=== PATIENT | female | born 1980 | race Caucasian/White ===

== ENCOUNTER 2016-12-07 19:57 | Emergency (ER) | payer OTHER ==
[~2016-12-07] VITALS: Ht 170.2 cm; Wt 84.1 kg
[2016-12-07 20:06] VITALS: BP 127/94; PULSE 90; RESP 16; O2SAT 100
--- NOTE | 2016-12-07 20:06 | ED.REPORT ---
HPI-Neurologic Deficit Date of Service Dec 07, 2016 ED Provider: Adria Oglesby DO Pt is a 36 y.o. female who presents to the ED from c/o right-sided numbness, last known normal 1430. Pt states that she was getting into her car when she began to experience the numbness. She also reports associated tingling, dizziness, and a "foggy" feeling. She decided to rest for a while and upon getting up she felt right-sided weakness and soreness. Upon arrival to the ED pt states she still has minimal decreased sensation to her right side but is near her baseline. She denies having slurred speech, facial droop, and vision changes. She reports having a migraine last week. She denies estrogen or control use. She denies a hx of CVA, seizures, CAD, DM, or substance abuse. Nursing Notes Stated Complaint: R/SIDE NUMBNESS Chief Complaint: Neuro Symptoms/ Deficits Nursing Notes Reviewed: Yes General Time Seen by Provider: 20:06 Chief Complaint Numbness arm... (Right), Numbness leg... (Right) Hx Obtained From: Patient Arrived By: Walk-in Sudden in Onset?: Yes Onset Occurred: 5 - 8 hours ago Symptom Duration: Since onset Progression Since Onset: Gradually improving Severity: Current: No pain currently Associated with: Reports: Altered sensation Related History: Denies: CVA/TIA, Drug abuse, Seizure disorder Recent Healthcare: No recent doctor visit, No recent hospitalization Similar Sx Previous: No Past Medical History Past Medical History Denies Denies: Coronary artery disease, Diabetes mellitus Denies: Seizure disorder Past Surgical History Denies Smoking History Current Every Day Smoker Social History Alcohol Use: "Social" Drug Use: Denies drug use Other Social History: Good social support, Ambulatory Status Independent Review of Systems Neurologic: Reports: Dizziness, Numbness (Right sided), Weakness (Right sided) , Denies: Slurred speech, Vision change Complete sys rev & neg: except as marked. Physical Exam Initial Vital Signs Vital Signs (First) Date Time Temp Pulse Resp B/P Pulse Ox O2 Delivery O2 Flow Rate FiO2 12/07/16 20:06 36.7 90 16 127/94 100 Room Air Initial VS: Reviewed Abdomen / GI: No distention Extremities: Vascular intact, Neuro intact Skin: Warm, Dry, No cyanosis Psychiatric: Mood/affect normal, Behavior normal, Normal thought content General/Constitutional: Awake, Alert, No acute distress, Well appearing, Well developed, Well hydrated, Well nourished, Not toxic appearing Head / Eyes: Atraumatic, Normocephalic, PERRL Respiratory / Chest: Atraumatic, Breath sounds NL, Breath sounds = bilat, No respiratory distress, No rales, No rhonchi, No wheezing, No retractions, No stridor Cardiovascular: Heart rate NL, Regular rhythm, Heart sounds NL, No gallop, No murmurs, No rubs, Cap refill not delayed, Peripheral circulation NL Neurologic: Oriented X3, Speech NL, No motor deficits Interpretation & Diagnostics PROCEDURE: MRI BRAIN WITHOUT CONTRAST ([id number]) IMPRESSION: MR of the brain without contrast is considered normal. Cause of right arm, facial weakness is not identified. Dictated by: Rudy George M.D. on 12/07/2016 at 22:37 Approved by: Rudy George M.D. on 12/07/2016 at 22:39 Lab Results Interpretation Result Diagram: 12/07/16199912/07/161999 Test 12/07/16 20:00 12/07/16 20:32 White Blood Count 13.0th/mm3 (3.8-10.1) Red Blood Count 4.54mil/mm3 (3.90-5.20) Hemoglobin 15.1g/dL (12.0-15.6) Hematocrit 43.3% (35.0-46.0) Mean Corpuscular Volume 95.4fL (81-100) Mean Corpuscular Hemoglobin 33.3pg (27.0-35.0) Mean Corpuscular Hemoglobin Concent 34.9% (32.0-37.0) Red Cell Distribution Width 12.7% (12.3-15.4) Platelet Count 276bil/L (150-400) Neutrophils (%) (Auto) 70.7% (40-74) Lymphocytes (%) (Auto) 19.7% (14-46) Monocytes (%) (Auto) 6.9% (4-12) Eosinophils (%) (Auto) 2.3% (0-5) Basophils (%) (Auto) 0.2% (0-3) Prothrombin Time 9.4sec (8.1-12.5) Prothromb Time International Ratio 0.88ratio Sodium Level 138mEq/L (134-144) Potassium Level 3.4mEq/L (3.5-5.2) Chloride Level 97mEq/L (97-108) Carbon Dioxide Level 24mmol/L (18-29) Blood Urea Nitrogen 14mg/dL (6-20) Creatinine 0.51mg/dL (0.57-1.00) Estimat Glomerular Filtration Rate 198mL/min (>59) Glucose Level 86mg/dL (60-99) Calcium Level 9.9mg/dL (8.5-10.1) Total Bilirubin 0.2mg/dL (0.0-1.2) Aspartate Amino Transf (AST/SGOT) 26U/L (0-50) Alanine Aminotransferase (ALT/SGPT) 24U/L (0-32) Alkaline Phosphatase 73U/L (25-150) Total Protein 8.1g/dL (6.4-8.4) Albumin 4.7g/dL (3.4-5.0) Thyroid Stimulating Hormone (TSH) 3.050uIU/mL (0.450-4.500) HCG Beta Subunit < 0.500mIU/mL Hold Raymond Top Tube Received (Received) Urine Color Straw (YELLOW) Urine Appearance Clear (CLEAR,HAZY) Urine pH 6.0 (5.0-8.0) Urine Specific [place] <1.005 (1.003-1.035) Urine Protein Negativemg/dL (NEG,TRACE) Urine Glucose (UA) Negativemg/dL (NEGATIVE) Urine Ketones Negativemg/dL (NEGATIVE) Urine Occult Blood Large (NEGATIVE) Urine Nitrite Negative (NEGATIVE) Urine Bilirubin Negative (NEGATIVE) Urine Urobilinogen Normalmg/dL (NORMAL) Urine Leukocyte Esterase Negative (NEGATIVE) Urine RBC 11-50/hpf (0-2) Urine WBC 0-5/hpf (0-5) Urine Epithelial Cells Moderate/hpf (NONE-MOD) Urine Crystals None seen (NONE SEEN) Urine Bacteria Moderate/hpf (NONE-FEW) Urine Hyaline Casts None/lpf (NONE) Urine Granular Casts None seen (NONE SEEN) Urine Waxy Casts None seen (NONE SEEN) Urine Red Blood Cell Casts None seen (NONE SEEN) Urine White Blood Cell Casts None seen (NONE SEEN) Urine Mucus Present (None Seen) Urine Trichomonas None seen (NONE SEEN) Urine Yeast None (NONE SEEN) Urinalysis Comment None Urine Culture Reflexed Indicated Hold Urine Received (Received) Urine Opiates Screen Negative Urine Methadone Screen Negative Urine Barbiturates Screen Negative Urine Amphetamines Screen Negative Urine Benzodiazepines Screen Negative Urine Cocaine Metabolite Screen Negative Urine Cannabinoids Screen Negative ECG Interpretation Time: 20:32 Interpreted by: ED physician Normal ECG Interpretation: Normal ECG w/ rate of... (81), Normal rate, Normal sinus rhythm CBC Interpretation WBC elevated CT Head Interpretation IMPRESSION: No abnormalities found in the CT of the head without contrast. Because the right-sided face arm and leg numbness and weakness is not identified. Dictated by: Rudy George M.D. on 12/07/2016 at 20:45 Approved by: Rudy George M.D. on 12/07/2016 at 20:48 Re-Eval/Medical Decision Med Decision/Clinical Course Patient presented with rapid resolution of stroke type symptoms. Her NIH stroke score was 0. CT scan of her brain was normal. MRI of her brain with diffusion-weighted imaging was normal. Her laboratory work was unremarkable. I recommended observation for stroke workup. She preferred to not be admitted for this. She did agree to start aspirin therapy and to follow-up with neurology. Taking count her age I do not feel that carotid artery disease is going to be the issue. I do think that she may need an echo but I would defer to neurology consultation. Neurology referral given. Recommendations for aspirin given. She understood the risks. She is discharged in stable condition. Source of Hx: Old records Re-Evaluation/Progress #1: Time of Eval: 20:39 )( Re-Eval Neurologic Exam: Pt is back to baseline Re-Evaluation/Progress Note: Pt rechecked. NIH stroke score or 0, pt states she is feeling back to baseline. Re-Evaluation/Progress #2: Time of Eval: 21:38 Re-Evaluation/Progress Note: Pt would prefer to not be admitted for observation. Re-Evaluation/Progress #3: Time of Eval: 21:41 Re-Evaluation/Progress Note: Discussed plan for MRI then discharge, pt understands and agrees with plan. NIH Stroke Scale : Level of Consciousness: Alert and responsive (0) Ask Month & Age: Both questions right (0) Open/Close Eyes/Hand Communications And Signals Supervisor: Performs both tasks (0) Horizontal EO Movements: None (0) Visual Goss: No visual loss (0) Facial Palsy: Normal symmetry (0) Right Arm Motor Drift (10s): No drift 10 sec (0) Left Arm Motor Drift (10s): No drift 10 sec (0) Right Leg Motor Drift (5s): No drift 5 sec (0) Left Leg Motor Drift (5s): No drift 5 sec (0) Limb Ataxia FNF/Heel-Overton: No ataxia (0) Sensation (Arms/Legs/Face): No sensory loss (0) Language Aphasia: No aphasia, normal (0) Dysarthria: No dysarthria, normal (0) Extinction/Inattention: No exctinct/inattent (0) NIHSS Score: 0 Time NIHSS Performed: 20:39 Date NIHSS Performed: Dec 07, 2016 Counseled Regarding: Diagnosis, Lab results, Need for follow-up, Need for admission Discharge & Departure Impression: Primary Impression: Numbness on right side Discharge Condition All VS Reviewed: Yes Condition: Stable Additional Instructions: Take 2 baby aspirin a day until you follow-up appointment with neurology. Call neurology tomorrow for next available appointment for further work-up as this may have been a TIA. I recommend you never smoke. Keep a close eye on your blood pressure. Set up a follow-up your primary care as well. Do not hesitate to return if you have any more numbness or weakness or if you develop any slurred speech or any weakness or any other problems. Referrals: Keron Geiger PA-C (PCP) Preeti Chaudhry MD Attestation Portions of this note were transcribed by Alyssa Vazquez. I, Dr. Oglesby personally performed the history, physical exam and medical decision-making; I reviewed and confirmed the accuracy of the information in the transcribed note. Signed by : Shelly Mosley, 12/07/16 and 6800. copies to: Preeti Chaudhry MD; Keron Geiger PA-C, Todd P DO Dec 07, 2016 20:06 ALYSSA VAZQUEZ Dec 07, 2016 20:09
[2016-12-07 20:18] LABS: BASOPHILS % (AUTO) 0.2 % (0-3); EOSINOPHILS % (AUTO) 2.3 % (0-5); MONOCYTES % (AUTO) 6.9 % (4-12); Mean Corpuscular Hemoglobin 33.3 pg (27.0-35.0); Mean Corpuscular Volume 95.4 fL (81-100); NEUTROPHILS % (AUTO) 70.7 % (40-74); Platelet Count 276 bil/L (150-400)
[2016-12-07 20:31] VITALS: BP 130/84; PULSE 90; RESP 16; O2SAT 99
[2016-12-07 20:31] LABS: INR 0.88 ratio
[2016-12-07 20:49] LABS: APPEARANCE,URINE CLEAR (CLEAR,HAZY); COLOR,URINE STRAW (YELLOW); OCCULT BLOOD,URINE LARGE (NEGATIVE); UROBILINOGEN,URINE NORMAL (NORMAL)
--- NOTE | 2016-12-07 20:49 | DRSVH ---
PROCEDURE: CT BRAIN WITHOUT CONTRAST ([id number]) INDICATIONS: right facial, arm and leg weakness TECHNIQUE: Noncontrast 4.5 mm thick angled axial sections acquired from the foramen magnum to the vertex, with c oronal reformats. COMPARISON: None. FINDINGS: Image quality: Excellent. CSF spaces: Basal cisterns are patent. No extra-axial fluid collections. Ventricles are normal in size and shape. Brain: No midline shift. No intracranial masses or hemorrhage. Wilson-white matter interface is norm al. Skull and face: Calvarium and visualized facial bones are intact, without suspicious lesions. Sinuses: Visualized sinuses and mastoids are clear. IMPRESSION: No abnormalities found in the CT of the head without contrast. Because the right-sided fa ce arm and leg numbness and weakness is not identified. Dictated by: Rudy George M.D. on 12/07/2016 at 20:45 Approved by: Rudy George M.D. on 12/07/2016 at 20:48
[2016-12-07 21:40] VITALS: BP 126/78; PULSE 76; RESP 16; O2SAT 99
--- NOTE | 2016-12-07 22:41 | DRSVH ---
PROCEDURE: MRI BRAIN WITHOUT CONTRAST ([id number]) INDICATIONS: right arm and facial weakness, normal head ct TECHNIQUE: Noncontrast axial T1 spin echo, axial T2 fast spin echo, sagittal and axial FLAIR, coronal T2 fast sp in echo, axial gradient echo, axial diffusion and ADC through the brain. COMPARISON: None. FINDINGS: Image quality: Excellent. CSF Spaces: Basal cisterns are patent. No extra-axial fluid collections. Ventricles are normal in size and shape. Brain: No intracranial masses or hemorrhage. Wilson/white matter interface is normal. Brainstem appe ars normal. Diffusion-weighted images demonstrate no acute ischemic insult. No chronic ischemic ins ults. Normal intravascular flow voids are present. Skull and face: Calvarium has normal marrow signal. Orbits appear normal. Sinuses: Sinuses and mastoids are clear. IMPRESSION: MR of the brain without contrast is considered normal. Cause of right arm, facial weaknes s is not identified. Dictated by: Rudy George M.D. on 12/07/2016 at 22:37 Approved by: Rudy George M.D. on 12/07/2016 at 22:39
[2016-12-07 23:07] VITALS: BP 124/70; PULSE 66; RESP 16; O2SAT 99
[2016-12-07 23:08] VITALS: BP 124/70; PULSE 66; RESP 16; O2SAT 99
== END 2016-12-07 23:08 | disposition home or self-care (01) ==
LOC: EDBD 19:57 → EDUNIT# 19:57 → SED 20:00
DX: R20.0 Anesthesia of skin (principal); R42 Dizziness and giddiness; F17.200 Nicotine dependence, unspecified, uncomplicated
CPT/HCPCS: 36415; 70450; 70551; 80053; 81000; 84443; 84702; 85025; 85610; 87086; 87088; 93005; 99284; A4300; G0463; G0480